=== PATIENT | male | born 2000 | race Caucasian/White ===

== ENCOUNTER 2020-05-16 15:45 | Emergency (ER) | payer MEDICAID ==
[2020-05-16] MEDS ORDERED: cefTRIAXone 1 GM, Lidocaine 1% 2.1 ML IM ONE ×2 (16:46)
[2020-05-16] MEDS ORDERED: Acetaminophen/HYDROcodone 325-5 MG Tab PO ONE (16:47)
--- NOTE | 2020-05-16 16:52 | EDM.PDOC ---
ED HPI GENERAL MEDICAL PROBLEM - General Chief Complaint: Upper Extremity Injury/Pain Stated Complaint: SKIN INFECTION ON ARM Time Seen by Provider: 05/16/20 16:47 Source of Information: Reports: Patient History Limitations: Reports: No Limitations - History of Present Illness INITIAL COMMENTS - FREE TEXT/NARRATIVE: pt got a tatoo 3 daysago. He now has marked redness over the entire rt lower arm where the tatoo is in place. Onset: Gradual Duration: Hour(s): Location: Reports: Upper Extremity, Right Associated Symptoms: Reports: Fever/Chills - Related Data Allergies Allergy/AdvReac Type Severity Reaction Status Date / Time Penicillins Allergy Cannot Verified 05/16/20 16:20 Remember Home Meds: Home Meds NK [No Known Home Meds] 05/16/20 [History] Past Medical History - Past Surgical History GI Surgical History: Reports: Hernia, Inguinal Review of Systems - Review of Systems Review Of Systems: See Below Constitutional: Reports: Chills Eyes: Reports: No Symptoms Ears: Reports: No Symptoms Nose: Reports: No Symptoms Mouth/Throat: Reports: No Symptoms Respiratory: Reports: No Symptoms Cardiovascular: Reports: No Symptoms Musculoskeletal: Reports: Other ( redness and warmth on the rt lower arm. ) Skin: Reports: Erythema Neurological: Reports: No Symptoms Psychiatric: Reports: No Symptoms ED EXAM, GENERAL - Physical Exam Exam: See Below Free Text/Narrative:: pt gt a tatoo 3 days ago and He now has a red hot arm where the tatoo is in place. Exam Limited By: No Limitations General Appearance: Alert, Anxious, Moderate Distress Ears: Normal TMs Extremities: Other ( rt arm has a new ttoo and this was done about 3 days ago. This is very red and hot at this time. It is quite tender. ) Course - Vital Signs Last Recorded V/S: Last Vital Signs Temp 36.2 C 05/16/20 16:23 Pulse 100 05/16/20 16:23 Resp 20 05/16/20 16:23 BP 121/70 05/16/20 16:23 Pulse Ox 95 05/16/20 16:23 - Orders/Labs/Meds Orders: Active Orders 24 hr Category Date Time Status cefTRIAXone 1 GM,Lidocaine 1% 2.1 ML Med 05/16/20 16:46 Ordered cefTRIAXone [Rocephin] 1 gm Lidocaine 1% [Xylocaine-MPF 1%] 2.1 ml IM ONETIME - Re-Assessments/Exams Free Text/Narrative Re-Assessment/Exam: 05/16/20 16:51 pt was given norco 5/325 and rocephen 1 gm im. Departure - Departure Time of Disposition: 16:51 Disposition: Home, Self-Care 01 Condition: Fair Clinical Impression: Cellulitis - Discharge Information Referrals: PCP,None [Primary Care Provider] - Care Plan Goals: moist warm packs to the arm bid, followed by a cool pack elevate arm, norco 5/325 q6h prn for pain # 10, keflex 500mg tid for 10 days, Sepsis Event Note (ED) - Evaluation Sepsis Screening Result: No Definite Risk - Focused Exam Vital Signs: Vital Signs Temp Pulse Resp BP Pulse Ox 05/16/20 16:23 36.2 C 100 20 121/70 95 05/16/20 16:12 36.2 C 100 20 121/70 95 - My Orders Last 24 Hours: My Active Orders 05/16/20 16:46 cefTRIAXone 1 GM,Lidocaine 1% 2.1 ML cefTRIAXone [Rocephin] 1 gm Lidocaine 1% [Xylocaine-MPF 1%] 2.1 ml IM ONETIME - Assessment/Plan Last 24 Hours: My Active Orders 05/16/20 16:46 cefTRIAXone 1 GM,Lidocaine 1% 2.1 ML cefTRIAXone [Rocephin] 1 gm Lidocaine 1% [Xylocaine-MPF 1%] 2.1 ml IM ONETIME
== END 2020-05-16 17:07 | disposition home or self-care (01) ==
LOC: JP.ED 15:45
DX: L03.113 Cellulitis of right upper limb (principal)
CPT/HCPCS: 96372; 99283; A9270; J0696; J2001

== ENCOUNTER 2021-03-09 18:14 | Emergency (ER) | payer MEDICAID ==
--- NOTE | 2021-03-09 19:34 | EDM.PDOC ---
ED HPI GENERAL MEDICAL PROBLEM - General Chief Complaint: General Stated Complaint: TOOTH PAIN Time Seen by Provider: 03/09/21 19:25 Source of Information: Reports: Patient History Limitations: Reports: No Limitations - History of Present Illness INITIAL COMMENTS - FREE TEXT/NARRATIVE: Pablito is a 20-year-old male presenting to the ED for evaluation of dental pain involving teeth #13, 14, and 15. The patient's symptoms started about a week ago. He contacted his dentist, but they are not able to see him for the next 2 weeks so this prompted him to come in because of increasing pain. Patient has a history of dental infection in the upper teeth on the right side that ended up becoming a facial cellulitis. He is trying to avoid that with this time. He denies any fever or chills, difficulty swallowing, sore throat but does state that he is getting frequent headaches due to the pain. Left Face/Facial Pain Score (Numeric/FACES): 8 - Related Data Allergies Allergy/AdvReac Type Severity Reaction Status Date / Time Penicillins Allergy Cannot Verified 03/09/21 19:03 Remember Home Meds: Home Meds Clindamycin HCl 300 mg PO TID #30 capsule 03/09/21 [Rx] Ketorolac [Toradol] 10 mg PO Q6H PRN #20 tab 03/09/21 [Rx] Past Medical History - Past Surgical History GI Surgical History: Reports: Hernia, Inguinal Social & Family History - Tobacco Use Tobacco Use Status *Q: Never Tobacco User - Caffeine Use Caffeine Use: Reports: Soda - Recreational Drug Use Recreational Drug Use: No ED ROS GENERAL - Review of Systems Review Of Systems: See Below Constitutional: Reports: No Symptoms HEENT: Reports: Dental Pain, Other (Left facial pain over the maxillary and ethmoid sinuses) Respiratory: Reports: No Symptoms Cardiovascular: Reports: No Symptoms Endocrine: Reports: No Symptoms GI/Abdominal: Reports: No Symptoms : Reports: No Symptoms Musculoskeletal: Reports: No Symptoms Skin: Reports: No Symptoms Neurological: Reports: Headache Psychiatric: Reports: No Symptoms Hematologic/Lymphatic: Reports: No Symptoms Immunologic: Reports: No Symptoms ED EXAM, GENERAL - Physical Exam Exam: See Below Exam Limited By: No Limitations General Appearance: Alert, Anxious, Mild Distress Eye Exam: Bilateral Eye: EOMI, PERRL Throat/Mouth: Other (Pain with palpation over teeth #13, 14, and 15. There is mild gingival swelling at the base but no obvious abscess to I&D. There is also tenderness with percussion over the left ethmoid sinus.) Head: Facial Tenderness (Left zygomatic arch), Sinus Tenderness (Left ethmoid sinus). No: Facial Swelling Neck: Normal Inspection, Supple, Non-Tender, Full Range of Motion. No: Lymphadenopathy (R), Lymphadenopathy (L) Course - Vital Signs Last Recorded V/S: Last Vital Signs Temp 36.3 C 03/09/21 19:03 Pulse 96 03/09/21 19:03 Resp 16 03/09/21 19:03 BP 134/88 03/09/21 19:03 Pulse Ox 97 03/09/21 19:03 - Re-Assessments/Exams Free Text/Narrative Re-Assessment/Exam: 03/09/21 19:38 The patient has an infection of the left upper jaw including teeth #13, 14, and 15. We will put him on clindamycin 300 mg 3 times daily for 10 days. I will also put him on Toradol 10 mg 4 times daily as needed for moderate pain dispensing 20 tablets. Indications to return to the ED were discussed. The patient will follow up with his dentist in 2 weeks as previously arranged by his appointment. Departure - Departure Time of Disposition: 19:33 Disposition: Home, Self-Care 01 Clinical Impression: Dental infection - Discharge Information Prescriptions: Clindamycin HCl 300 mg PO TID #30 capsule Ketorolac [Toradol] 10 mg PO Q6H PRN #20 tab PRN Reason: Pain Instructions: Dental Abscess Referrals: PCP,None [Primary Care Provider] - Forms: ED Department Discharge Care Plan Goals: Follow-up as soon as you can with your dentist. We are starting you on clindamycin 1 capsule 3 times a day for 10 days and Toradol 10 mg every 6 hours as needed for pain control. Sepsis Event Note (ED) - Evaluation Sepsis Screening Result: No Definite Risk - Focused Exam Vital Signs: Vital Signs Temp Pulse Resp BP Pulse Ox 03/09/21 19:03 36.3 C 96 16 134/88 97 03/09/21 18:56 36.3 C 96 16 134/88 97 - Problem List & Annotations (1) Dental infection SNOMED Code(s): 323010671 Code(s): K04.7 - PERIAPICAL ABSCESS WITHOUT SINUS Status: Acute Priority: Low Current Visit: Yes - Problem List Review Problem List Initiated/Reviewed/Updated: Yes
== END 2021-03-09 19:38 | disposition home or self-care (01) ==
LOC: JP.ED 18:14
DX: K04.7 Periapical abscess without sinus (principal); Z88.0 Allergy status to penicillin
CPT/HCPCS: 99282; 99283

== ENCOUNTER 2022-02-08 23:04 | Emergency (ER) | payer MEDICAID ==
[2022-02-08] MEDS ORDERED: Ketorolac 30 MG/ML SDV IM ONE (23:41)
== END 2022-02-08 23:51 | disposition home or self-care (01) ==
LOC: JP.ED 23:04
DX: K02.9 Dental caries, unspecified (principal); K04.7 Periapical abscess without sinus; F17.210 Nicotine dependence, cigarettes, uncomplicated; Z88.0 Allergy status to penicillin
CPT/HCPCS: 96372; 99281; 99282-25; J1885